=== PATIENT | female | born 1975 | race Caucasian/White ===

== ENCOUNTER 2019-03-25 11:56 | Emergency (ER) | payer BC ==
[2019-03-25] MEDS ORDERED: ACETAMINOPHEN 325 MG TABLET PO ONE (13:28)
[2019-03-25] MEDS ORDERED: DIPH/PERTUSS(ACELL)/TETANUS VAC/PF 0.5 ML SYR (>=10YO) IM ONE ×2 (13:28→16:30)
--- NOTE | 2019-03-25 13:41 | ER Document Report ---
ED Medical Screen (RME) - General Chief Complaint: Head Injury without LOC Stated Complaint: FALL/LACERATION TO HEAD Time Seen by Provider: 03/25/19 13:21 - HPI Notes: 03/25/19 13:28 Patient is a 44-year-old female no significant past medical history who presents complaining of fall from a 7 foot ladder and hitting the back of her head off of a work bench. Patient states that she has had bleeding and a cut to the back of her head as well as feeling fatigue and having headache. Patient states that she has had some neck pain associated. She is otherwise able to ambulate without difficulties or pain in her hips, legs. Patient does not believe that she had loss of conscious, but was dazed at the time. Denies drug allergies. She is not on any blood thinning medications. Denies any fever, changes in vision/speech/mentation/hearing, URI, sore throat, chest pain, palpitations, syncope, cough, shortness of breath, wheeze, dyspnea, abdominal pain, nausea/vomiting/diarrhea, urinary retention, dysuria, hematuria, loss of control of bowel or bladder, numbness/tingling, saddle anesthesia, muscle paralysis/weakness, or rash. I have treated and performed a rapid initial assessment of this patient. A comprehensive ED assessment and evaluation of the patient, analysis of test results and completion of medical decision making process will be conducted by additional ED providers. Patient placed in c-collar and imaging ordered. PHYSICAL EXAMINATION: accompanied by female nurse GENERAL: Well-appearing, well-nourished and in no acute distress. A&Ox4. Answers questions appropriately. HEAD: There is a laceration noted to the occipital superior scalp with associated tenderness and mild swelling. No marin sign noted. EYES: Pupils equal round and reactive to light, extraocular movements intact, sclera anicteric, conjunctiva are normal. No raccoon eyes/entrapment ENT: EAC clear b/l. TM's intact b/l without erythema, fluid, or perforation. Nares patent and without discharge. oropharynx clear without exudates. No tonsilar hypertrophy or erythema. Moist mucous membranes. No sinus tenderness. No hemotympanum/CSF discharge. NECK: Normal range of motion, supple without lymphadenopathy. No rigidity. Patient does have some midline tenderness to palpation. Chest: No flail chest. equal rise/fall. Non-tender LUNGS: Breath sounds clear to auscultation bilaterally and equal. No wheezes rales or rhonchi. HEART: Regular rate and rhythm without murmurs, rubs, gallops. ABDOMEN: Soft, nontender, nondistended abdomen. No guarding, no rebound. No masses appreciated. Normal bowel sounds present. No CVA tenderness bilaterally. No ecchymosis Musculoskeletal: Ext b/l: FROM to passive/active. Strength 5+/5. No deficits noted. No bony tenderness of extremities. Back: FROM to passive/active. Strength 5+/5. No vertebral point tenderness, stepoffs, or deformities. No other bony tenderness or ecchymosis. Extremities: No cyanosis, clubbing, or edema b/l. Peripheral pulses 2+. Ca pillary refill less than 2 seconds. NEUROLOGICAL: NIH 0. GCS 15. Cranial nerves grossly intact. Normal speech, normal gait. Normal sensory, motor exams. Reflexes 2+ b/l. MARIA's negative. Pronator drift negative. Heel/soriano, finger/nose wnl. PSYCH: Normal mood, normal affect. SKIN: See above. - Related Data Allergies/Adverse Reactions: No Known Allergies Allergy (Unverified 03/25/19 12:01) Past Medical History - Social History Chew tobacco use (# tins/day): No Frequency of alcohol use: None Drug Abuse: None - Past Medical History Cardiac Medical History: Reports: Hx Hypertension Renal/ Medical History: Denies: Hx Peritoneal Dialysis Physical Exam - Vital signs Vitals: Temp Pulse Resp BP Pulse Ox 97.7 F 91 16 134/86 H 100 03/25/19 12:08 03/25/19 12:08 03/25/19 12:08 03/25/19 12:08 03/25/19 12:08 Course - Vital Signs Vital signs: Temp Pulse Resp BP Pulse Ox 97.7 F 91 16 134/86 H 100 03/25/19 12:08 03/25/19 12:08 03/25/19 12:08 03/25/19 12:08 03/25/19 12:08
--- NOTE | 2019-03-25 13:52 | RADIOLOGY REPORT (SQ) ---
EXAM DESCRIPTION: CT CERVICAL SPINE WITHOUT COMPLETED DATE/TIME: 03/25/2019 1:41 pm REASON FOR STUDY: fall 7ft, head injury and lac, pain COMPARISON: None. TECHNIQUE: Axial images acquired through the cervical spine without intravenous contrast. Images re viewed with lung, soft tissue and bone windows. Reconstructed coronal and sagittal MPR images review ed. Images stored on PACS. All CT scanners at this facility use dose modulation, iterative reconstruction, and/or weight based d osing when appropriate to reduce radiation dose to as low as reasonably achievable (ALARA). [facility]: Dose Right [facility]: CareDose [facility]: Dose Right [facility]: Teradose 4D [facility]: [employer] RADIATION DOSE: CT Rad equipment meets quality standard of care and radiation dose reduction techniq ues were employed. CTDIvol: 15.7 mGy. DLP: 324 mGy-cm. mGy. LIMITATIONS: None. FINDINGS: ALIGNMENT: Anatomic. MINERALIZATION: Normal. VERTEBRAL BODIES: No fractures or dislocation. DISCS: No significant disc disease. FACETS, LATERAL MASSES, POSTERIOR ELEMENTS: No fractures. No dislocation. No acute findings. HARDWARE: None in the spine. VISUALIZED RIBS: No fractures. LUNG APICES AND SOFT TISSUES: No significant or acute findings. OTHER: No other significant finding. IMPRESSION: No fracture or static subluxation of the cervical spine. TECHNICAL DOCUMENTATION: JOB ID: [id number] Quality ID # [id number]: Final reports with documentation of one or more dose reduction techniques (e.g., Au tomated exposure control, adjustment of the mA and/or kV according to patient size, use of iterative reconstruction technique) 2010 [employer]- All Rights Reserved Reading location - IP/workstation name: [email or web address]
--- NOTE | 2019-03-25 13:57 | RADIOLOGY REPORT (SQ) ---
EXAM DESCRIPTION: CT HEAD WITHOUT COMPLETED DATE/TIME: 03/25/2019 1:41 pm REASON FOR STUDY: fall 7ft, head injury and lac, pain (occip/super.) COMPARISON: None. TECHNIQUE: Axial images acquired through the brain without intravenous contrast. Images reviewed wi th bone, brain and subdural windows. Additional sagittal and coronal reconstructions were generated. Images stored on PACS. All CT scanners at this facility use dose modulation, iterative reconstruction, and/or weight based d osing when appropriate to reduce radiation dose to as low as reasonably achievable (ALARA). [facility]: Dose Right [facility]: CareDose [facility]: Dose Right [facility]: Teradose 4D [facility]: [employer] RADIATION DOSE: CT Rad equipment meets quality standard of care and radiation dose reduction techniq ues were employed. CTDIvol: 53.2 mGy. DLP: 1070 mGy-cm. mGy. LIMITATIONS: None. FINDINGS: VENTRICLES: Normal size and contour. CEREBRUM: No masses. No hemorrhage. No midline shift. No evidence for acute infarction. Normal gra y/white matter differentiation. No areas of low density in the white matter. CEREBELLUM: No masses. No hemorrhage. No alteration of density. No evidence for acute infarction. EXTRAAXIAL SPACES: No fluid collections. No masses. ORBITS AND GLOBE: No intra- or extraconal masses. Normal contour of globe without masses. CALVARIUM: No fracture. PARANASAL SINUSES: No fluid or mucosal thickening. SOFT TISSUES: Soft tissue laceration and hematoma of the occipital scalp. OTHER: No other significant finding. IMPRESSION: 1. No acute intracranial pathology. 2. Soft tissue laceration and hematoma of the occipital scalp. EVIDENCE OF ACUTE STROKE: NO. COMMENT: Quality ID # [id number]: Final reports with documentation of one or more dose reduction techniques (e.g., Automated exposure control, adjustment of the mA and/or kV according to patient size, use of iterative reconstruction technique) TECHNICAL DOCUMENTATION: JOB ID: [id number] [employer]- All Rights Reserved Reading location - IP/workstation name: [email or web address]
[2019-03-25] MEDS ORDERED: OXYCODONE HCL IR 5 MG TABLET PO ONE (15:09)
--- NOTE | 2019-03-25 16:01 | ER Document Report ---
ED General - General Chief Complaint: Head Injury without LOC Stated Complaint: FALL/LACERATION TO HEAD Time Seen by Provider: 03/25/19 13:21 Primary Care Provider: BERNIE TRUJILLO FINANCE TEACHER [Primary Care Provider] - Follow up as needed Mode of Arrival: Ambulatory Information source: Patient TRAVEL OUTSIDE OF THE [place] IN LAST 30 DAYS: No - HPI Patient complains to provider of: Fall from ladder, head and neck injury, scalp laceration Onset: Just prior to arrival Quality of pain: Sharp Severity: Severe Pain Level: 5 Associated symptoms: None Exacerbated by: Movement, Other - Palpation of the parietal scalp Relieved by: Denies Similar symptoms previously: No Recently seen / treated by doctor: No Notes: 44-year-old female coming in today with head injury and neck injury. She was on a 7 foot ladder and fell backwards hitting her head and hurting her neck. No loss of consciousness. There is a scalp laceration present. Last tetanus is unknown. - Related Data Allergies/Adverse Reactions: No Known Allergies Allergy (Unverified 03/25/19 12:01) Past Medical History - General Information source: Patient - Social History Smoking Status: Current Every Day Smoker Chew tobacco use (# tins/day): No Frequency of alcohol use: None Drug Abuse: None Family History: Reviewed & Not Pertinent Patient has suicidal ideation: No Patient has homicidal ideation: No - Past Medical History Cardiac Medical History: Reports: Hx Hypertension Renal/ Medical History: Denies: Hx Peritoneal Dialysis Review of Systems - Review of Systems Notes: Constitutional: No fevers. No chills. EENT: No eye redness. No eye pain. No ear pain. No sore throat. Cardiovascular: No chest pain. No palpitations. Respiratory: No cough. No shortness of breath. No respiratory distress. Gastrointestinal: No abdominal pain. No nausea, vomiting, or diarrhea. Genitourinary: Atraumatic. No lesions. No pain. No discharge. Musculoskeletal: Atraumatic. No swelling. No deformities. Skin: Scalp laceration Lymphatic: No swollen lymph nodes. Neurologic: +headache. No syncope. Psychiatric: No suicidal or homicidal ideation. Physical Exam - Vital signs Vitals: Temp Pulse Resp BP Pulse Ox 97.7 F 91 16 134/86 H 100 03/25/19 12:08 03/25/19 12:08 03/25/19 12:08 03/25/19 12:08 03/25/19 12:08 - Notes Notes: General: Well-developed, well-nourished. In no acute distress. Non-toxic appearing. Cardiac: Well-perfused. Regular rate and rhythm. No murmurs, rubs, or gallops. Pulmonary: No respiratory distress. No cyanosis. Bilateral lung fiels are clear to auscultation. Abdominal: Non-distended. Non-rigid. Bowels sounds are present in all four quadrants. No guarding or rebound. HEENT: Subcentimeter puncture wound mid occiput. Conjunctivae not reddened. No tearing. PERRL. EOMI. Orbits atraumatic. No periorbital swelling or erythema. Oropharynx is without erythema, swelling, or exudates. Neck: Supple. No adenopathy. No meningismus. C-collar removed. Diffuse paracervical muscle tenderness. No midline tenderness or step-off Dermatologic: Warm with good turgor. No rash. Atraumatic. Chest: Atraumatic. No chest wall tenderness to palpation. Musculoskeletal: Moves all extremities well. No range of motion deficits. no muscular or joint tenderness. No paraspinal muscle tenderness. no midline spinal tenderness or step-off. Genitourinary: Examination deferred Neurologic: No gross neurologic deficits. Psychiatric: Normal mood. Course - Re-evaluation Re-evalutation: 03/25/19 16:45 We will put a pressure dressing on this area. No suturing or stapling required. Pain medication as needed. Will discharge. - Vital Signs Vital signs: Temp Pulse Resp BP Pulse Ox 97.7 F 91 16 134/86 H 100 03/25/19 12:08 03/25/19 12:08 03/25/19 12:08 03/25/19 12:08 03/25/19 12:08 Discharge - Discharge Clinical Impression: Head injury Qualifiers: Encounter type: initial encounter Qualified Code(s): S09.90XA - Unspecified injury of head, initial encounter Neck injury Qualifiers: Encounter type: initial encounter Qualified Code(s): S19.9XXA - Unspecified injury of neck, initial encounter Puncture wound of scalp Qualifiers: Encounter type: initial encounter Qualified Code(s): S01.03XA - Puncture wound without foreign body of scalp, initial encounter Condition: Good Disposition: HOME, SELF-CARE Instructions: Head Injury Precautions ([facility]), Puncture Wound ([facility]), Oral Narcotic Medication ([facility]) Additional Instructions: If you experience any further bleeding after removing the pressure dressing, apply pressure again. Be gentle when washing hair. Ibuprofen or Aleve is an excellent anti-inflammatory medication and should help with most of the pain. If you need Aleve, you may take the prescribed pain medication. Prescriptions: Hydrocodone/Acetaminophen [[place] 5-325 mg Tablet] 1 tab PO Q6HP PRN #10 tablet PRN Reason: Referrals: BERNIE TRUJILLO, FINANCE TEACHER [Primary Care Provider] - Follow up as needed
[2019-03-25 17:05] VITALS: BP 132/76
== END 2019-03-25 17:04 | disposition home or self-care (01) ==
LOC: ER 11:56
DX: S01.03XA Puncture wound without foreign body of scalp, initial encounter (principal); S19.9XXA Unspecified injury of neck, initial encounter; R51 Headache; W11.XXXA Fall on and from ladder, initial encounter; W22.09XA Striking against other stationary object, initial encounter; Y93.89 Activity, other specified; F17.200 Nicotine dependence, unspecified, uncomplicated; I10 Essential (primary) hypertension
CPT/HCPCS: 70450; 72125; 90471; 90715; 99283